=== PATIENT | female | born 1980 | race Asian ===

== ENCOUNTER 2017-09-18 22:37 | Emergency (ER) | END 2017-09-18 23:30 | disposition left against medical advice (07) ==

== ENCOUNTER 2017-09-21 22:06 | Emergency (ER) | END 2017-09-21 23:02 | disposition home or self-care (01) ==

== ENCOUNTER 2018-11-25 16:07 | Emergency (ER) | payer BC ==
[~2018-11-25] VITALS: Ht 157.5 cm; Wt 65.9 kg
[~2018-11-25 16:07] MED LIST: AMOX1TAB10 PO; DIPH25CA6 PO; HYDR-4011 PO; NAPR-688 PO; birth control
[2018-11-25 16:14] VITALS: BP 133/70; PULSE 103; RESP 18; Ht 157.5 cm; Wt 65.9 kg
--- NOTE | 2018-11-25 16:51 | ERD ---
ER Documentation Chief Complaint Chief Complaint 17 WKS . COUGH X 7 DAYS. HPI 38-year-old female , last menstrual rate 07/27/2018 presents the ED complaining of a 7-day history of cough. A week ago her child had a URI and she developed nonspecific URI symptoms and low-grade fevers for 1 day which have resolved but continues to have an ongoing cough occasionally productive of yellowish sputum. Denies shortness of breath or wheezing. No abdominal pain or back pain. No nausea or vomiting. Denies hearing, polyuria, hematuria or flank pain. No vaginal discharge or bleeding. No skin rash. No fevers or chills. ROS All systems reviewed and are negative except as per history of present illness. Medications Home Meds Active Scripts Diphenhydramine Hcl* (Diphenhydramine Hcl*) 25 Mg Capsule, 25 MG PO Q6 PRN for COUGH, #20 CAP Prov:YESY SANTANA DO 09/21/17 Hydrocodone/Acetaminophen ([place] 5-325 Tablet) 1 Each Tablet, 1 EACH PO Q6, #10 TAB Prov:YESY SANTANA DO 09/21/17 Naproxen* (Naproxen*) 500 Mg Tablet, 500 MG PO BID PRN for pain, aches, #20 TAB Prov:YESY SANTANA DO 09/21/17 Amoxicillin/Potassium Clav (Amox-Clav 875-125 mg Tablet) 875-125 mg Tab, 1 TAB PO BID, #20 TAB Prov:YESY SANTANA DO 09/21/17 Reported Medications [ control] No Conflict Check 04/01/13 Allergies Allergies: Coded Allergies: No Known Allergy (Unverified , 04/01/13) PMhx/Soc Reviewed in chart. As per HPI. History of Surgery: No Anesthesia Reaction: No Hx Neurological Disorder: No Hx Respiratory Disorders: Yes Hx Cardiac Disorders: No Hx Psychiatric Problems: No Hx Miscellaneous Medical Probl: No Hx Alcohol Use: No Hx Substance Use: No Hx Tobacco Use: No Smoking Status: Never smoker FmHx No family history relevant to presenting complaint. Physical Exam Vitals Vital Signs Date Temp Pulse Resp B/P (MAP) Pulse Ox O2 O2 Flow FiO2 Time Delivery Rate 11/25/18 98.1 103 18 133/70 98 16:14 (91) Physical Exam Const: No acute distress Head: Atraumatic Eyes: Normal Conjunctiva ENT: Normal External Ears, Nose and Mouth. Pharynx is clear without erythema or exudate. Neck: Full range of motion. No lymphadenopathy or tenderness.. Resp: Breath sounds are equal bilaterally. Clear to auscultation without rales wheezes or rhonchi. Cardio: Regular rate and rhythm, no murmurs Abd: Soft, gravid, non tender, non distended. Normal bowel sounds Skin: No petechiae or rashes Back: No midline or flank tenderness Ext: No cyanosis, or edema Neur: Awake and alert Psych: Normal Mood and Affect Results 24 hrs Current Medications Medications Dose Sig/Esteban Start Time Status Last (Trade) Ordered Route PRN Stop Time Admin Dose Reason Admin Albuterol 2 puff NOW INH 11/25/18 DC 11/25/18 (Ventolin 17:00 17:08 Hfa) 11/25/18 17:11 Procedures/MDM DOCUMENTS REVIEWED: ED nurse, prior records MEDICAL DECISION MAKIN-year-old female , last menstrual rate 2017 presents the ED complaining of a 7-day history of cough. Patient presents with signs and symptoms consistent with bronchitis most likely viral be treated with a trial of albuterol MDI. Lungs are clear and there is no indication for imaging at this point. Pneumonia is unlikely and there is no indication for antibiotics. No edema or signs of congestive heart failure. Abdominal exam is completely benign without tenderness, rebound, guarding or signs of an intra- abdominal process including but not limited to appendicitis. No indication for pelvic ultrasound as patient has ongoing care and reports a viable intrauterine on prior ultrasound. No symptoms of urinary tract infection or threatened AB. Stable for discharge with precautionary instructions and outpatient follow-up as counseled. Counseled patient regarding diagnostic workup, diagnosis and need for followup. Understands to return to ED if symptoms recur, worsen or any other concerns. Departure Diagnosis: Primary Impression: Cough Additional Impressions: Bronchitis Weeks of gestation: 17 weeks Qualified Codes: Z3A.17 - 17 weeks gestation of Condition: Stable JUAN LUIS MACIEL MD Nov 25, 2018 16:51
[2018-11-25] MEDS ORDERED: ALBUTEROL HFA 8 GM INHALER INH SCH (17:00)
== END 2018-11-25 17:11 | disposition home or self-care (01) ==
LOC: E/R 16:07
DX: O99.512 Diseases of the respiratory system complicating pregnancy, second trimester (principal); J40 Bronchitis, not specified as acute or chronic; Z3A.17 17 weeks gestation of pregnancy